=== PATIENT | male | born 1985 | race African-American/Black ===

== ENCOUNTER 2023-09-07 01:14 | Day surgery (SDC) | payer BC, OTHER ==
[2023-09-07] MEDS ORDERED: ONDANSETRON 4 MG/2 ML VIAL ONE ×2 (01:37→13:56)
[2023-09-07] MEDS ORDERED: KETOROLAC TROMETHAMINE 30 MG/1 ML VIAL ONE ×2 (01:37→14:21)
[2023-09-07] MEDS ORDERED: SODIUM CHLORIDE 1,000 ML IV ONE (01:39)
[2023-09-07] MEDS ORDERED: KETOROLAC TROMETHAMINE 30 MG/1 ML VIAL IVPUSH ONE (01:39)
[2023-09-07] MEDS ORDERED: ONDANSETRON 4 MG/2 ML VIAL IVPUSH ONE (01:39)
[2023-09-07] MEDS ORDERED: morphine CARPU-JECT 4 MG/1 ML DISP.SYRIN IVPUSH ONE (01:44)
[2023-09-07 02:52] LABS: HEMATOCRIT 45.2 % (35.4-49); HEMOGLOBIN 15.9 GM/dL (11.7-16.9); MCH 31.3 pg (25.7-33.7); MCHC 35.1 g/dl (32.0-35.9); MEAN CELL VOLUME 89.2 fl (80-96); MEAN PLT VOLUME 7.4 fl (7.5-11.1); PLATELET COUNT 349 10^3/uL (134-434); RBC 5.07 M/mm3 (4.00-5.60); WHITE BLOOD COUNT 8.2 K/mm3 (4.0-10.0)
[2023-09-07 03:18] LABS: POTASSIUM 3.6 mmol/L (3.5-5.1)
[2023-09-07 03:20] LABS: ALBUMIN 3.9 g/dl (3.4-5.0); BLOOD UREA NITROGEN 21.2 mg/dL (7-18)
[2023-09-07 03:23] LABS: CREATININE 1.5 mg/dL (0.55-1.3)
[2023-09-07 03:25] LABS: BILIRUBIN,TOTAL 0.4 mg/dL (0.2-1); TOT PROT 7.4 g/dl (6.4-8.2)
[2023-09-07] MEDS ORDERED: CEFTRIAXONE 2,000 MG in DEXTROSE 5%-WATER - 50 ML IVPB ONE (06:44)
[2023-09-07 09:14] VITALS: BMI 34.2
[2023-09-07] MEDS ORDERED: LACTATED RINGERS SOLUTION 1,000 ML/1,000 ML INFUS.BAG IV SCH (10:00)
[2023-09-07] MEDS: PANTOPRAZOLE SODIUM 40 MG VIAL IVPUSH SCH (11:46)
[2023-09-07 12:05] LABS: HEMATOCRIT 47.8 % (35.4-49); HEMOGLOBIN 15.3 G/dL (11.7-16.9); MCH 29.9 pg (25.7-33.7); MCHC 32.1 g/dl (32.0-35.9); MEAN CELL VOLUME 93.2 fl (80-96); MEAN PLT VOLUME 7.4 fl (7.5-11.1); PLATELET COUNT 277.5 10^3/uL (134-434); RBC 5.13 10^6/uL (4.00-5.60); RDW 14.2 % (11.9-15.9); WHITE BLOOD COUNT 9.3 10^3/uL (4.0-10.8)
[2023-09-07 12:07] LABS: INR 1.03 (0.83-1.09); PROTHROMBIN TIME (PATIENT) 11.9 SEC (9.7-13.0)
[2023-09-07 12:10] LABS: ACTIVATED PTT 36.7 SECONDS (25.2-36.5)
[2023-09-07 12:34] LABS: POTASSIUM 3.7 mmol/L (3.5-5.1)
[2023-09-07 12:38] LABS: ALBUMIN 3.4 g/dl (3.4-5.0); CALCIUM 8.6 mg/dL (8.5-10.1)
[2023-09-07 12:41] LABS: CREATININE 1.1 mg/dL (0.55-1.3)
[2023-09-07 12:43] LABS: BILIRUBIN,TOTAL 0.4 mg/dL (0.2-1); TOT PROT 6.6 g/dl (6.4-8.2)
[2023-09-07 12:46] LABS: ERYTHROCYTE SEDIMENTATION RATE 5 mm/hr (0-10)
[2023-09-07] MEDS ORDERED: ONDANSETRON 4 MG/2 ML VIAL IVPUSH PRN (13:11)
[2023-09-07] MEDS ORDERED: PROMETHAZINE HCL 25 MG/1 ML VIAL IVPB PRN (13:11)
[2023-09-07] MEDS ORDERED: LACTATED RINGERS SOLUTION 1,000 ML IV SCH (13:15)
[2023-09-07] MEDS ORDERED: ROCURONIUM BROMIDE 50 MG/5 ML SYRINGE ONE (13:18)
[2023-09-07] MEDS ORDERED: MIDAZOLAM HCL 2 MG/2 ML SINGLE DOSE VIAL ONE (13:18)
[2023-09-07] MEDS ORDERED: PROPOFOL 20 ML ONE ×2 (13:18→14:50)
[2023-09-07] MEDS ORDERED: LIDOCAINE HCL/PF 2% SDV 5ML VIAL ONE (13:45)
[2023-09-07] MEDS ORDERED: SODIUM CHLORIDE 0.9% P/F 10 ML VIAL IJ ONE (13:54)
[2023-09-07] MEDS ORDERED: DEXAMETHASONE SOD PHOSPHATE 4 MG/1 ML VIAL ONE (13:56)
[2023-09-07] MEDS ORDERED: BUPIVACAINE HCL/PF 2.5 MG/ML - 30 ML VIAL IJ ONE (13:56)
[2023-09-07] MEDS ORDERED: ACETAMINOPHEN INJECTION 100 ML IVPB ONE (14:02)
[2023-09-07] MEDS ORDERED: SUGAMMADEX SODIUM 200 MG/2 ML VIAL ONE (14:57)
[2023-09-08 02:05] VITALS: RESP 18
[2023-09-08] MEDS ORDERED: CEFTRIAXONE 1 GM in DEXTROSE 5%-WATER - 50 ML IVPB SCH (07:00)
[2023-09-08 09:36] VITALS: BP 132/67; PULSE 83; TEMP 97.9
[2023-09-08] MEDS: PANTOPRAZOLE SODIUM 40 MG VIAL IVPUSH SCH (09:47)
== END 2023-09-08 12:46 | disposition home or self-care (01) ==
LOC: FER 01:14 → UNDOADMOB 06:48 → FM/S 06:48 → OBSVTOIN 06:49 → INTOOBSV 06:49 → FASUSAT 11:52 → FM/S 11:55 → FASUSAT 09-08 12:46
PROVIDERS: ATTEND Nurse Practitioner Family
PROC: 0FT44ZZ Resection of Gallbladder, Percutaneous Endoscopic Approach (ICD-10-PCS; principal; 2023-09-07 14:00)
DX: K81.2 Acute cholecystitis with chronic cholecystitis (principal); K80.20 Calculus of gallbladder without cholecystitis without obstruction
CPT/HCPCS: 0241U-QW; 36415; 76705-TC; 80053; 82550; 82553; 83690; 84484; 85027; 85610; 85651; 85730; 86140; 88304-TC; 94760; 99285-25